=== PATIENT | female | born 1940 | race Caucasian/White ===

== ENCOUNTER 2022-10-01 18:29 | Emergency (ER) | payer OTHER ==
[~2022-10-01] VITALS: Ht 160 cm; Wt 70.3 kg
[2022-10-01 18:42] VITALS: BP 179/88
--- NOTE | 2022-10-01 18:57 | NUR ---
URINE COLLECTED. AT BEDSIDE
--- NOTE | 2022-10-01 18:59 | NUR ---
MAGDA ALS TO ER BED 8
--- NOTE | 2022-10-01 18:59 | NUR ---
FAMILY CALLED;GRANDSON PRIMARY CAREGIVER RAFAEL MASONZOFIA [phone]; DAUGHTER GIL (IN [place]) [phone]
[2022-10-01] MEDS ORDERED: NACL 0.9% 1,000 ML IV ONE (19:20)
--- NOTE | 2022-10-01 19:35 | NUR ---
xray at bedside
[2022-10-01 19:36] LABS: BASOPHILS # (AUTO) 0.1 K/uL (0.00-0.22); EOSINOPHILS # (AUTO) 0.2 K/uL (0-0.4); HEMATOCRIT 39.1 % (36-48); HEMOGLOBIN 13.5 g/dL (12.0-16.0); LYMPHOCYTES # (AUTO) 1.8 K/uL (2.5-16.5); LYMPHOCYTES % (AUTO) 26.7 % (20.5-51.1); MEAN CORPUSCULAR HEMOGLOBIN 30 pg (27-31); MEAN CORPUSCULAR HGB CONC 35 g/dL (33-37); MEAN CORPUSCULAR VOLUME 86.9 fL (80-94); MONOCYTES # (AUTO) 0.5 K/uL (0.8-1.0); MONOCYTES % (AUTO) 7.3 % (1.7-9.3); NEUTROPHILS # (AUTO) 4.2 K/uL (1.8-7.7); PLATELET COUNT (AUTO) 227 K/uL (140-450); RED BLOOD CELL COUNT(AUTO) 4.49 MIL/uL (4.20-5.40); RED CELL DISTRIBUTION WIDTH 13.8 % (11.6-13.7); WHITE BLOOD COUNT (AUTO) 6.7 K/uL (4.8-10.8)
[2022-10-01 20:00] LABS: APPEARANCE,URINE CLEAR (CLEAR); BILIRUBIN,URINE NEGATIVE (NEGATIVE); BLOOD, URINE NEGATIVE (NEGATIVE); COLOR,URINE YELLOW (YELLOW); LEUKOCYTE ESTERASE ,URINE NEGATIVE (NEGATIVE); NITRITE, URINE NEGATIVE (NEGATIVE); PH,URINE 7.5 (5.0-9.0); UGLUCOSE 3+ (NEGATIVE)
--- NOTE | 2022-10-01 20:03 | NUR ---
82YR OLD FEMALE BIB EMS C/O HIGH BLOOD SUGAR. LAST ACCU CHECK 343. 20G IV CATH RESTARTED R AC. PT IS A&OX4. RESP EVEN AND UNLABORED. 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 DENIES PAIN CP OR SOB. HOB ELEVATED. SKIN WARM AND DRY AND INTACT. BED AT LOWEST POSITION SIDE RAILS UP X2 PROPOXPHENE DM
[2022-10-01 20:05] LABS: ALBUMIN 3.6 g/dL (3.4-5.0); ASPARTATE AMINOTRANSFERASE 22 U/L (15-37); CARBON DIOXIDE 27.7 mmol/L (21-32); CHLORIDE 100 mmol/L (98-107); CREATININE 0.8 mg/dL (0.6-1.3); GLUCOSE 388 mg/dL (74-106); POTASSIUM 4.7 mmol/L (3.5-5.1); SODIUM SERUM 136 mmol/L (136-145); TOTAL BILIRUBIN 0.7 mg/dL (0.0-1.0); UREA NITROGEN, BLOOD 12 mg/dL (7-18)
[2022-10-01 20:17] LABS: ACETONE, SERUM NEGATIVE (NEGATIVE)
[2022-10-01] MEDS ORDERED: INSULIN REGULAR, HUMAN 100 UNIT/ML VIAL SUBQ ONE (20:45)
--- NOTE | 2022-10-01 21:18 | NUR ---
FOOD PROVIDED FOR PT .
--- NOTE | 2022-10-01 21:27 | NUR ---
PUREWIX PLACED ON PT
--- NOTE | 2022-10-01 21:53 | NUR ---
PT IS UP FOR DISPO. ATTEMPTED TO REACH GRANDSON LEFT MESG ON VM. WILL ATTEMPT AGAIN
--- NOTE | 2022-10-01 22:31 | NUR ---
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
[2022-10-01 22:32] VITALS: BP 163/74
--- NOTE | 2022-10-01 22:32 | NUR ---
Patient discharged with v/s stable. Written and verbal after care instructions given and explained. Patient verbalized understanding. Wheel Chair Assisted with by caregiver. All questions addressed prior to discharge. Advised to follow up with PMD.
== END 2022-10-01 22:32 | disposition home or self-care (01) ==
LOC: MED 18:29
DX: E11.65 Type 2 diabetes mellitus with hyperglycemia (principal); I10 Essential (primary) hypertension; Z88.8 Allergy status to other drugs, medicaments and biological substances; Z79.4 Long term (current) use of insulin; Z79.899 Other long term (current) drug therapy
CPT/HCPCS: 36415; 71045; 80053; 81003; 82009; 84484; 85025; 93005; 96360; 99285; J1815; J7030